=== PATIENT | female | born 1980 | race Hispanic/Latino ===

== ENCOUNTER 2019-02-19 22:01 | Emergency (ER) | payer OTHER ==
[~2019-02-19] VITALS: Ht 160 cm; Wt 77.1 kg
[2019-02-19] MEDS ORDERED: SODIUM CHLORIDE 0.9% 1000ML 1,000 ML IV STA (22:22)
[2019-02-19] MEDS ORDERED: KETOROLAC TROMETHAMINE 30 MG/ML VIAL IV STA (22:22)
[2019-02-19] MEDS ORDERED: ONDANSETRON HCL INJ 2MG/ML 2ML 2 MG/ML VIAL IV STA (22:47)
[2019-02-19 22:55] LABS: BASOPHILS # (AUTO) 0.1 (0.0-0.1); BASOPHILS % 0.5 % (0.0-1.0); EOSINOPHILS # (AUTO) 0.5 (0.0-0.4); EOSINOPHILS % 4.5 % (0.0-6.0); HEMATOCRIT 43.7 % (34.2-44.1); HEMOGLOBIN 14.9 g/dL (12.0-16.0); LYMPHOCYTES % 28.1 % (18.0-39.1); MEAN CORPUSCULAR HEMOGLOBIN 28.7 pg (28-32); MEAN CORPUSCULAR HGB CONC 34.1 g/dL (31-35); MEAN CORPUSCULAR VOLUME 84.2 fL (81-99); MONOCYTES # (AUTO) 0.5 (0.2-0.8); MONOCYTES % 4.3 % (4.4-11.3); NEUTROPHILS # (AUTO) 6.7 (2.1-6.9); NEUTROPHILS % 62.3 % (38.7-80.0); PLATELET COUNT 335 x10e3/uL (140-360); RED BLOOD COUNT 5.19 x10e6/uL (3.6-5.1); RED CELL DISTRIBUTION WIDTH 13.9 % (11.7-14.4)
[2019-02-19 22:59] LABS: BILIRUBIN,URINE NEGATIVE (NEGATIVE); CLARITY,URINE CLEAR (CLEAR); COLOR,URINE YELLOW (YELLOW); LEUKOCYTE ESTERASE ,URINE NEGATIVE (NEGATIVE); NITRITE,URINE NEGATIVE (NEGATIVE); PROTEIN,URINE DIPSTICK NEGATIVE (NEGATIVE); URINE UROBILINOGEN 0.2 mg/dL (0.2 - 1)
[2019-02-19 23:06] LABS: KETONES,URINE 2+ (NEGATIVE)
[2019-02-19 23:12] LABS: BACTERIA,URINE FEW /HPF; EPITHELIAL CELLS,URINE FEW /LPF; RBC,URINE 0-5 /HPF (0-5); WBC,URINE (MAN) 0-5 /HPF (0-5)
[2019-02-19] MEDS ORDERED: KETOROLAC TROMETHAMINE 30 MG/ML VIAL ONE (23:22)
[2019-02-19] MEDS ORDERED: ONDANSETRON HCL INJ 2MG/ML 2ML 2 MG/ML VIAL ONE (23:23)
[2019-02-19 23:31] LABS: ALANINE AMINOTRANSFERASE 19 IU/L (0-55); ALBUMIN 4.2 g/dL (3.5-5.0); ALBUMIN/GLOBULIN RATIO 1.3 (0.8-2.0); ALKALINE PHOSPHATASE 87 IU/L (40-150); ANION GAP 11.7 mmol/L (8-16); BLOOD UREA NITROGEN 12 mg/dL (7-26); BUN/CREATININE RATIO 15 (6-25); CALCIUM 9.7 mg/dL (8.4-10.2); CARBON DIOXIDE 23 mmol/L (22-29); CHLORIDE 103 mmol/L (98-107); EST GLOMERULAR FILTRATION RATE > 60 ML/MIN (60-); GLUCOSE 92 mg/dL (74-118); MAGNESIUM 2.2 MG/DL (1.3-2.1); POTASSIUM 3.7 mmol/L (3.5-5.1); SODIUM 134 mmol/L (136-145)
--- NOTE | 2019-02-20 00:57 | Diagnostic Imaging Report ---
EXAM: CT Abdomen and Pelvis WITHOUT contrast INDICATION: Abdomen back pain. Stones? COMPARISON: None. TECHNIQUE: Abdomen and pelvis were scanned utilizing a multidetector helical scanner from the lung base to the pubic symphysis without administration of IV contrast. Absence of intravenous contrast decreases sensitivity for detection of focal lesions and vascular pathology. Coronal and sagittal reformations were obtained. Routine protocol was performed. IV CONTRAST: None. ORAL CONTRAST: Water RADIATION DOSE: Total DLP: 537.46 mGy*cm Estimated effective dose: (DLP x 0.015 x size factor) mSv COMPLICATIONS: None FINDINGS: LINES and TUBES: None. LOWER THORAX: Unremarkable HEPATOBILIARY: No focal hepatic lesions. No biliary ductal dilation. GALLBLADDER: Lamellated gallstone. No wall thickening. SPLEEN: No splenomegaly. PANCREAS: No focal masses or ductal dilatation. ADRENALS: No adrenal nodules KIDNEYS/URETERS: There is mild dilatation of the left ureter. There is a punctate calcification in the region of the low bladder neck as seen on axial image 154 sagittal image 74 possibly passed calculus. There is a punctate calcification abutting the left posterior aspect of the urinary bladder appears medial and inferior to the left UVJ. 1.3 cm low-attenuation lesion in the lower pole of the right kidney on image 66. Punctate nonobstructing calculus in the upper pole of the right kidney on coronal image 66. GI TRACT: No abnormal distention, wall thickening, or evidence of bowel obstruction. Appendix is normal. PELVIC ORGANS/BLADDER: There is an oval low-attenuation lesion in the left adnexa measuring 7.2 x 6.6 x 4.5 cm in sagittal, AP and transverse dimensions. Phleboliths scattered throughout the pelvis. The uterus is not visualized. LYMPH NODES: No lymphadenopathy. VESSELS: Unremarkable. PERITONEUM / RETROPERITONEUM: No free air or fluid. BONES: Unremarkable. SOFT TISSUES: Unremarkable. IMPRESSION: 1. Mild left hydroureteronephrosis with a probable passed punctate calculus in the urinary bladder neck. 2. 7.2 cm left adnexal lesion most suggestive of a simple follicular cyst. Recommend further evaluation with nonemergent ultrasound of pelvis. 3. Cholelithiasis. Signed by: Dr. Bernardino Irving M.D. on 02/20/2019 12:53 AM
[2019-02-20] MEDS ORDERED: SODIUM CHLORIDE 0.9% 1000ML 1,000 ML IV STA (01:10)
[2019-02-20] MEDS ORDERED: SODIUM CHLORIDE 0.9% 1000ML 1,000 ML ONE (01:17)
--- NOTE | 2019-02-20 01:44 | NUR ---
STILL WAITING ON RADIOLOGY REPORTS, SYSTEM PROBLEM - RADIOLOGIST NOT GETTING IMAGES
--- NOTE | 2019-02-20 02:06 | Diagnostic Imaging Report ---
EXAM: Transabdominal and Transvaginal Pelvic Ultrasound with Doppler evaluation INDICATION: LLQ ABD PAIN COMPARISON: Correlation with of abdomen and pelvis performed earlier on the same day. TECHNIQUE: Grayscale transverse and sagittal Grayscale transverse and sagittal transabdominal and transvaginal images were obtained of the pelvis. Transvaginal imaging was medically necessary to better evaluate the endometrium and the adnexa. The ovaries were examined with grayscale, color Doppler, and spectral waveform analysis. CLINICAL HISTORY: 38 year old A2; last menstrual period: 2017. FINDINGS: Uterus: Surgically absent Right ovary: Not visualized. Left ovary: Size: 7.6 x 3.3 x 5.9 cm Mass/Cyst: 4.7 x 2.9 x 4.6 cm anechoic lesion. 2.3 x 1.9 x 3.5 cm mildly complex lesion. Vascularity: Normal venous and arterial color flow and waveforms. Adnexa: Normal Cul-de-sac: No free fluid IMPRESSION: 1. Large left adnexal/ovarian cystic lesion identified on CT examination performed earlier on the same day, consists of a 4.7 cm simple follicular cyst, and a 3.5 cm mildly complex cystic lesion, probably a hemorrhagic cyst. Recommend follow-up ultrasound of pelvis in 6-8 weeks to document resolution. 2. No evidence of left ovarian torsion. 2. Status post hysterectomy. Right ovary not identified, however, no right adnexal abnormality. Signed by: Dr. Bernardino Irving M.D. on 02/20/2019 2:03 AM
[2019-02-20 02:21] VITALS: BP 99/63
== END 2019-02-20 02:30 | disposition home or self-care (01) ==
LOC: ER 22:01
DX: N20.1 Calculus of ureter (principal); N83.292 Other ovarian cyst, left side; R11.0 Nausea; M32.9 Systemic lupus erythematosus, unspecified; M19.90 Unspecified osteoarthritis, unspecified site; Z88.5 Allergy status to narcotic agent
CPT/HCPCS: 36415; 74176; 76830; 80053; 81001; 83735; 85025; 87086; 93976; 96374; 99284; J1885; J2405; J7030